=== PATIENT | female | born 1985 | race Caucasian/White ===

== ENCOUNTER 2017-06-02 16:20 | Emergency (ER) | payer MEDICAID ==
[~2017-06-02] VITALS: Ht 170.2 cm; Wt 97.7 kg
[2017-06-02 16:26] VITALS: BP 126/78
== END 2017-06-02 18:43 | disposition left against medical advice (07) ==
LOC: EMS 16:21
DX: R51 Headache (principal); R11.0 Nausea; Z53.21 Procedure and treatment not carried out due to patient leaving prior to being seen by health care provider